=== PATIENT | female | born 1930 | race Caucasian/White ===

== ENCOUNTER 2018-12-30 12:17 | Inpatient (IN) | payer MEDICARE, OTHER, BC ==
[2018-12-30 13:16] LABS: ADD MAN DIFF? NO
[2018-12-30] MEDS: ALPRAZOLAM 0.25 MG TAB PO (13:17)
[2018-12-30 13:22] LABS: WHITE BLOOD COUNT 11.1 10^3/ul (4.8-10.8)
[2018-12-30 13:22] LABS: BASOPHILS % 0.4 % (0.0-2.0); EOSINOPHILS # 0.1 10^3/ul (0.0-0.5); EOSINOPHILS % 0.5 % (0.0-7.0); HEMATOCRIT 38.4 % (37.0-47.0); HEMOGLOBIN 12.2 g/dl (12.0-16.0); LYMPHOCYTES # 1.5 10^3/ul (0.8-2.9); LYMPHOCYTES % 13.6 % (15.0-51.0); MEAN CORPUSCULAR HEMOGLOBIN 29.8 pg (29.0-33.0); MEAN CORPUSCULAR HGB CONC 31.8 g/dl (32.0-37.0); MEAN CORPUSCULAR VOLUME 93.9 fl (82.0-101.0); MEAN PLATELET VOLUME 10.2 fl (7.4-10.4); MONOCYTE # 0.8 10^3/ul (0.3-0.9); MONOCYTES % 7.5 % (0.0-11.0); NEUTROPHIL # 8.6 10^3/ul (1.6-7.5); NEUTROPHILS % 77.5 % (39.0-77.0); PLATELET COUNT 191 10^3/UL (140-415); RED BLOOD COUNT 4.09 10^6/ul (4.20-5.40); RED CELL DISTRIBUTION WIDTH 12.5 % (11.5-14.5)
[2018-12-30 13:41] LABS: INR 0.98; PROTIME 13.1 Sec (11.9-14.9)
[2018-12-30 13:42] LABS: ALANINE AMINOTRANSFERASE 14 IU/L (13-69); ALBUMIN 3.8 g/dl (3.3-4.9); ALBUMIN/GLOBULIN RATIO 1.31; ALKALINE PHOSPHATASE 70 IU/L (42-121); ANION GAP 11 (5-13); ASPARTATE AMINO TRANSFERASE 14 IU/L (15-46); BILIRUBIN,INDIRECT 0.3 mg/dl (0-1.1); BILIRUBIN,TOTAL 0.3 mg/dl (0.2-1.3); BLOOD UREA NITROGEN 41 mg/dl (7-20); CALCIUM 9.8 mg/dl (8.4-10.2); CARBON DIOXIDE 28 mmol/L (21-31); CHLORIDE 104 mmol/L (97-110); CREATININE 1.68 mg/dl (0.44-1.00); GLUCOSE 134 mg/dl (70-220); POTASSIUM 4.2 mmol/L (3.5-5.1); SODIUM 143 mmol/L (135-144); TOTAL PROTEIN 6.7 g/dl (6.1-8.1)
[2018-12-30 13:43] LABS: PARTIAL THROMBOPLASTIN TIME 25.9 Sec (23.0-35.0)
[2018-12-30 13:53] LABS: TROPONIN-I < 0.012 ng/ml (0.000-0.120)
[2018-12-30] MEDS ORDERED: morphine 2 MG INJ IV (19:30)
[2018-12-30] MEDS ORDERED: BISACODYL (EC) 5 MG TAB PO (19:30)
[2018-12-30] MEDS ORDERED: HYDROCORTISONE 25 MG SUPP PR (19:30)
[2018-12-30] MEDS ORDERED: ACETAMINOPHEN 325 MG TAB PO (19:30)
[2018-12-30] MEDS ORDERED: ENALAPRILAT 1.25 MG INJ IV (19:30)
[2018-12-30] MEDS ORDERED: DOCUSATE SODIUM 100 MG CAP PO ×2 (19:30)
[2018-12-30] MEDS ORDERED: ACETAMINOPHEN 650 MG SUPP PR (19:30)
[2018-12-30] MEDS ORDERED: HYDROCODONE/APAP (5/325) TAB PO (19:30)
[2018-12-30] MEDS ORDERED: ONDANSETRON 4 MG INJ IV (19:30)
[2018-12-30] MEDS ORDERED: BISACODYL 10 MG SUPP PR (19:30)
[2018-12-30] MEDS: SOD CHLORIDE 0.9% 500 ML IV (20:34)
[2018-12-30] MEDS: PIPER-TAZO 3.375 GM IV (PMX) 100 ML IVPB (21:36)
[2018-12-30] MEDS: LIDOCAINE 5% PATCH TD (21:41)
[2018-12-30] MEDS: FAMOTIDINE 20 MG INJ IV (21:41)
[2018-12-30] MEDS: SOD CHLORIDE 0.9% 1,000 ML IV (21:49)
[2018-12-30] MEDS: LORAZEPAM 2 MG INJ IV (22:00)
[2018-12-30] MEDS: NACL 0.9% 3 ML SYG IV (22:01)
[2018-12-31] MEDS: ZOLPIDEM 5 MG TAB PO (01:36)
[2018-12-31] MEDS: SOD CHLORIDE 0.9% 1,000 ML IV ×2 (05:04→12:04)
[2018-12-31] MEDS ORDERED: PENDING SANTYL ORDER FOR WOUND CARE XX (06:30)
[2018-12-31] MEDS: FAMOTIDINE 20 MG INJ IV (09:36)
[2018-12-31] MEDS: LIDOCAINE 5% PATCH TD (09:37)
[2018-12-31 10:55] LABS: ADD MAN DIFF? NO
[2018-12-31 10:59] LABS: WHITE BLOOD COUNT 8.1 10^3/ul (4.8-10.8)
[2018-12-31 10:59] LABS: BASOPHILS % 0.4 % (0.0-2.0); EOSINOPHILS # 0.1 10^3/ul (0.0-0.5); EOSINOPHILS % 1.5 % (0.0-7.0); HEMATOCRIT 34.6 % (37.0-47.0); HEMOGLOBIN 10.8 g/dl (12.0-16.0); LYMPHOCYTES # 1.1 10^3/ul (0.8-2.9); LYMPHOCYTES % 13.2 % (15.0-51.0); MEAN CORPUSCULAR HEMOGLOBIN 29.8 pg (29.0-33.0); MEAN CORPUSCULAR HGB CONC 31.2 g/dl (32.0-37.0); MEAN CORPUSCULAR VOLUME 95.6 fl (82.0-101.0); MONOCYTE # 0.6 10^3/ul (0.3-0.9); MONOCYTES % 7.5 % (0.0-11.0); NEUTROPHIL # 6.3 10^3/ul (1.6-7.5); PLATELET COUNT 182 10^3/UL (140-415); RED BLOOD COUNT 3.62 10^6/ul (4.20-5.40); RED CELL DISTRIBUTION WIDTH 12.3 % (11.5-14.5)
[2018-12-31 11:14] LABS: ALANINE AMINOTRANSFERASE 15 IU/L (13-69); ALBUMIN 3.2 g/dl (3.3-4.9); ALBUMIN/GLOBULIN RATIO 1.28; ALKALINE PHOSPHATASE 53 IU/L (42-121); ANION GAP 8 (5-13); ASPARTATE AMINO TRANSFERASE 12 IU/L (15-46); BILIRUBIN,INDIRECT 0.3 mg/dl (0-1.1); BILIRUBIN,TOTAL 0.3 mg/dl (0.2-1.3); BLOOD UREA NITROGEN 34 mg/dl (7-20); CALCIUM 8.9 mg/dl (8.4-10.2); CARBON DIOXIDE 29 mmol/L (21-31); CHLORIDE 107 mmol/L (97-110); CREATININE 1.47 mg/dl (0.44-1.00); GLUCOSE 107 mg/dl (70-220); MAGNESIUM 2.1 mg/dl (1.7-2.5); PHOSPHORUS 3.2 mg/dl (2.5-4.9); POTASSIUM 3.7 mmol/L (3.5-5.1); SODIUM 144 mmol/L (135-144); TOTAL PROTEIN 5.7 g/dl (6.1-8.1)
[2018-12-31 11:16] LABS: INR 1.06; PROTIME 13.9 Sec (11.9-14.9); PT RATIO 1.1
[2018-12-31 11:47] LABS: THYROID STIMULATING HORMONE 0.958 MIU/L (0.465-4.680)
[2018-12-31 11:51] LABS: HEMOGLOBIN A1C 5.3 % (0-5.9)
== END 2018-12-31 17:55 | disposition home or self-care (01) | DRG 379 ==
LOC: E/R 12:17 → 2NE 16:53
DX: K92.2 Gastrointestinal hemorrhage, unspecified (principal); K92.1 Melena; F41.1 Generalized anxiety disorder; I12.9 Hypertensive chronic kidney disease with stage 1 through stage 4 chronic kidney disease, or unspecified chronic kidney disease; N18.9 Chronic kidney disease, unspecified; K60.4 Rectal fistula; R62.7 Adult failure to thrive; Z68.29 Body mass index [BMI] 29.0-29.9, adult
CPT/HCPCS: 36415; 71045; 74176; 80053; 83036; 83735; 84100; 84443; 84484; 85025; 85610; 85730; 86850; 86900; 86901; 87081; 93005; 99285-25